=== PATIENT | female | born 1985 | race Caucasian/White ===

== ENCOUNTER 2016-12-12 23:57 | Emergency (ER) | payer SELFPAY ==
[~2016-12-12] VITALS: Ht 177.8 cm; Wt 82.1 kg
[~2016-12-12 23:57] MED LIST: ACHD5005 PO; BUSP15TA60 PO; CLIN300C3 PO; CYCL10TA9 PO; DIAZ10TA PO; IBUP-1773 PO; PREN1TAB79 PO; SULF1TAB38 PO; TRM50T PO
[2016-12-13] MEDS ORDERED: KETOROLAC 60 MG/2 ML VIAL IM ONE (00:45)
[2016-12-13 00:59] LABS: BASOPHILS % (AUTO) 0 % (0-10); EOSINOPHILS # (AUTO) 0.1 10^3/uL (0.0-0.3); EOSINOPHILS % (AUTO) 1 % (0-10); LYMPHOCYTES # (AUTO) 2.5 X 10^3 (1.0-4.0); LYMPHOCYTES % (AUTO) 22 % (12-44); MEAN CORPUSCULAR HEMOGLOBIN 31 PG (25-34); MEAN CORPUSCULAR HGB CONC 35 G/DL (32-36); MEAN CORPUSCULAR VOLUME 91 FL (80-99); MEAN PLATELET VOLUME 9.6 FL (7.4-10.4); MONOCYTES # (AUTO) 0.8 X 10^3 (0.0-1.0); MONOCYTES % (AUTO) 7 % (0-12); NEUTROPHILS # (AUTO) 8.1 X 10^3 (1.8-7.8); NEUTROPHILS % (AUTO) 70 % (42-75); PLATELET COUNT 286 10^3/uL (130-400); RED BLOOD COUNT 4.76 10^6/uL (4.35-5.85); RED CELL DISTRIBUTION WIDTH 12.5 % (10.0-14.5); WHITE BLOOD COUNT 11.5 10^3/uL (4.3-11.0)
[2016-12-13] MEDS ORDERED: KETOROLAC 30 MG/ML VIAL IVP ONE (01:00)
[2016-12-13] MEDS ORDERED: CLINDAMYCIN INJECTION 900 MG in NS (IVPB) 50 ML IV ONE (01:00)
[2016-12-13] MEDS ORDERED: SULF1TAB35 PO (01:05)
[2016-12-13] MEDS ORDERED: CEFD300C3 PO (01:05)
--- NOTE | 2016-12-13 01:07 | ED General ---
General Chief Complaint: Facial Problems Stated Complaint: POSS ON RT SIDE OF FACE,EAR PAIN,DRAINAGE Nursing Triage Note: patient reports ear drainage x 3 weeks, patient reports R side of face started to swell this morning Nursing Sepsis Screen: No Definite Risk Source of Information: Patient Exam Limitations: No Limitations History of Present Illness Time Seen by Provider: 00:26 Initial Comments This 31-year-old young lady presents to the emergency room with complaints of erythema, swelling, and tenderness around the right thigh, especially medial to the brow. This is been present for the past few days. She also complains of ear draining bilaterally for the past 2-3 weeks. Patient reports having a history of abscesses requiring drainage in the past and exposure to MRSA. She is afebrile. Patient denies vision changes or pain with extraocular movements. Allergies and Home Medications Allergies Coded Allergies: No Known Drug Allergies (Verified , 08/16/09) Home Medications Cefdinir 300 Mg Capsule, 300 MG PO BID, #20 Prescribed by: TERRENCE HAYNES on 12/13/16 0105 Sulfamethoxazole/Trimethoprim 1 Each Tablet, 1 EACH PO BID, #20 Prescribed by: TERRENCE HAYNES on 12/13/16 0105 Constitutional: no symptoms reported EENTM: see HPI Respiratory: no symptoms reported Cardiovascular: no symptoms reported Gastrointestinal: no symptoms reported Genitourinary: no symptoms reported LMP: Dec 02, 2016 Musculoskeletal: no symptoms reported Skin: see HPI Psychiatric/Neurological: No Symptoms Reported Hematologic/Lymphatic: No Symptoms Reported Past Ktyyhjn-Uoqdfd-Vvbuaz Hx Patient Social History Alcohol Use: Denies Use Recreational Drug Use: No Smoking Status: Current Everyday Smoker Type Used: Cigarettes Recent Foreign Travel: No Contact w/Someone Who Travel: No Recent Infectious Disease Expo: No Recent Hopitalizations: No Immunizations Up To Date Tetanus Booster (TDap): Unknown PED Vaccines UTD: No Surgeries HX Surgeries: Yes (tonsilectomy) Surgeries: Adenoidectomy, Tonsillectomy Respiratory Hx Respiratory Disorders: No Cardiovascular Hx Cardiac Disorders: No Neurological Hx Neurological Disorders: No Reproductive System : No Hx Reproductive Disorders: No Sexually Transmitted Disease: No Genitourinary Hx Genitourinary Disorders: No Gastrointestinal Hx Gastrointestinal Disorders: No Musculoskeletal Hx Musculoskeletal Disorders: No Endocrine Hx Endocrine Disorders: No HEENT HX ENT Disorders: No Cancer Hx Cancer: No Psychosocial Hx Psychiatric Problems: No Integumentary HX Skin/Integumentary Disorder: Yes (history of MRSA abscess) Blood Transfusions Hx Blood Disorders: No Adverse Reaction to a Blood Tr: No Family Medical History Family Medial History: ARTHRI FH: thyroid cancer FHx: arthritis MATERNAL GRANDFATHER LUNG DISEASE MATERNAL GRANDMOTHER BLIND THYR Physical Exam Vital Signs Vital Sign - Last 12Hours 12/13/16 00:10 Temp 97.6 Pulse 115 Resp 18 B/P (MAP) 130/89 Pulse Ox 98 Capillary Refill : Less Than 3 Seconds General Appearance: No Apparent Distress, WD/WN Eyes: Right Eye EOMI, Right Eye Lid Inflammation, Right Eye Other (edema, tenderness and erythema in the periorbital region with fluctuant swelling medial to the right brow), Right Eye PERRL HEENT: PERRL/EOMI, Normal ENT Inspection, Pharynx Normal, TM Abnormal (L) ( effusion), TM Abnormal (R) (effusion) Neck: Normal Inspection Respiratory: Lungs Clear, Normal Breath Sounds, No Accessory Muscle Use, No Respiratory Distress Cardiovascular: No Edema, No Murmur, Tachycardia Extremity: Normal Inspection Neurologic/Psychiatric: Alert, Oriented x3, No Motor/Sensory Deficits, Normal Mood/Affect, management consulting II-XII Norm as Tested Skin: Normal Color, Warm/Dry Progress/Results/Core Measures Results/Orders Lab Results Laboratory Tests Test 12/13/16 00:50 Range/Units White Blood Count 11.5 H 4.3-11.0 10^3/uL Red Blood Count 4.76 4.35-5.85 10^6/uL Hemoglobin 14.9 11.5-16.0 G/DL Hematocrit 43 35-52 % Mean Corpuscular Volume 91 80-99 FL Mean Corpuscular Hemoglobin 31 25-34 PG Mean Corpuscular Hemoglobin Concent 35 32-36 G/DL Red Cell Distribution Width 12.5 10.0-14.5 % Platelet Count 286 130-400 10^3/uL Mean Platelet Volume 9.6 7.4-10.4 FL Neutrophils (%) (Auto) 70 42-75 % Lymphocytes (%) (Auto) 22 12-44 % Monocytes (%) (Auto) 7 0-12 % Eosinophils (%) (Auto) 1 0-10 % Basophils (%) (Auto) 0 0-10 % Neutrophils # (Auto) 8.1 H 1.8-7.8 X 10^3 Lymphocytes # (Auto) 2.5 1.0-4.0 X 10^3 Monocytes # (Auto) 0.8 0.0-1.0 X 10^3 Eosinophils # (Auto) 0.1 0.0-0.3 10^3/uL Basophils # (Auto) 0.0 0.0-0.1 10^3/uL C-Reactive Protein High Sensitivity 0.60 H 0.00-0.50 MG/DL My Orders Orders - TERRENCE FIGUEROA MD Ketorolac Injection (Toradol Injection) (12/13/16 00:45) Ketorolac Injection (Toradol Injection) (12/13/16 01:00) Cbc With Automated Diff (12/13/16 00:46) Hs C Reactive Protein (12/13/16 00:46) Clindamycin Injection (Cleocin Injection (12/13/16 01:00) Sulfamethoxazole/Trimet Ds Tab (Bactrim (12/13/16 01:15) Medications Given in ED Current Medications Medications Dose Ordered Sig/Jose Roberto Route Start Time Stop Time Status Last Admin Dose Admin Clindamycin Phosphate 900 mg/ Sodium Chloride 56 ml @ 100 mls/hr ONCE ONCE IV 12/13/16 01:00 12/13/16 01:32 DC 12/13/16 00:58 100 MLS/HR Ketorolac Tromethamine 30 mg ONCE ONCE IVP 12/13/16 01:00 12/13/16 01:01 DC 12/13/16 00:58 30 MG Trimethoprim/ Sulfamethoxazole 1 ea ONCE ONCE PO 12/13/16 01:15 12/13/16 01:16 DC 12/13/16 01:30 1 EA Vital Signs/I&O Vital Sign - Last 12Hours 12/13/16 12/13/16 00:10 01:32 Temp 97.6 98.4 Pulse 115 105 Resp 18 18 B/P (MAP) 130/89 Pulse Ox 98 97 Blood Pressure Mean: 103 Progress Note : Progress Note The area medial to the right brow was rather fluctuant and had a small white head. I discussed options with patient. She and I both agree that attempt at incision and drainage would be appropriate. A small incision was made with a number 11 scalpel. Only blood returned. Patient requested something for pain management. An IV was established and Toradol was administered. Clindamycin was given by IV route for initial antibiotic therapy. CBC and CRP were obtained. Departure Impression Impression: Primary Impression: Periorbital cellulitis of right eye Additional Impression: Bilateral otitis media with effusion Disposition: HOME, SELF-CARE Condition: Improved Departure-Patient Inst. Decision time for Depature: 01:04 Referrals: [facility] (PCP/Family) Primary Care Physician Patient Instructions: PERIORBITAL CELLULITIS Add. Discharge Instructions: Complete the entire course of antibiotics as prescribed. Follow-up with your primary care provider soon as possible. Return to the emergency room if symptoms are worsening, especially if you develop fevers greater than 100. You may use ibuprofen up to 800 mg every 8 hours as needed for pain. Add Tylenol (acetaminophen) up to 1000 mg every 6 hours as needed for additional pain relief. All discharge instructions reviewed with patient and/or family. Voiced understanding. Scripts Cefdinir (Cefdinir) 300 Mg Capsule 300 MG PO BID, #20 CAP Prov: TERRENCE FIGUEROA MD 12/13/16 Sulfamethoxazole/Trimethoprim (Bactrim Ds Tablet) 1 Each Tablet 1 EACH PO BID, #20 TAB Prov: TERRENCE FIGUEROA MD 12/13/16 Copy Copies To 1: BERTHA GARCIA MD, JOSHUA T MD Dec 13, 2016 01:07
[2016-12-13] MEDS ORDERED: TRIM/SULFAMETH 160/800 (SEPTRA DS) TAB PO ONE (01:15)
[2016-12-13 01:32] VITALS: BP 134/84
== END 2016-12-13 01:32 | disposition home or self-care (01) ==
LOC: EDUNIT# 23:57 → ER 12-13 00:07
DX: L03.213 Periorbital cellulitis (principal); H65.193 Other acute nonsuppurative otitis media, bilateral; F17.210 Nicotine dependence, cigarettes, uncomplicated
CPT/HCPCS: 36415; 85025; 86141; 96365; 96375; 99283

== ENCOUNTER → 2019-12-03 | Outpatient (CLI) | payer OTHER ==
[~2019-12-03] MED LIST changes: +CEFD300C3 PO; +SULF1TAB35 PO
[2019-12-03 20:40] LABS: HEMOGLOBIN 14.3 G/DL (11.5-16.0); MEAN PLATELET VOLUME 9.3 FL (7.4-10.4); RED CELL DISTRIBUTION WIDTH 12.1 % (10.0-14.5)
[2019-12-03 20:45] LABS: ALBUMIN 4.4 GM/DL (3.2-4.5); CHLORIDE 108 MMOL/L (98-107); POTASSIUM 3.7 MMOL/L (3.6-5.0); SODIUM 142 MMOL/L (135-145)
[2019-12-03 20:48] LABS: GLUCOSE 112 MG/DL (70-105); TOTAL PROTEIN 7.2 GM/DL (6.4-8.2)
[2019-12-03 20:49] LABS: BILIRUBIN,TOTAL 0.4 MG/DL (0.1-1.0); CARBON DIOXIDE 26 MMOL/L (21-32)
[2019-12-03 20:51] LABS: ALKALINE PHOSPHATASE 42 U/L (40-136); CREATININE SERUM 0.76 MG/DL (0.60-1.30); GFR ESTIMATED > 60
[2019-12-03 20:52] LABS: BUN/CREATININE RATIO 14
[2019-12-03 20:54] LABS: ALANINE AMINOTRANSFERASE 10 U/L (0-55)
== END ==
LOC: LAB 20:19
PROVIDERS: ATTEND Nurse Practitioner Family
DX: R05 Cough (principal); R06.2 Wheezing
CPT/HCPCS: 36415; 80053; 85027; 86738